=== PATIENT | male | born 1965 | race Two or more races ===

== ENCOUNTER 2023-03-04 12:12 | Day surgery (SDC) | payer OTHER ==
[~2023-03-04] VITALS: Ht 170.2 cm; Wt 85.7 kg
[~2023-03-04 12:12] MED LIST: ATORVASTATIN CA80 MG PO; CHILDREN'S ASPI81 MG PO; NORVASC5 MG PO; ZESTRIL40 M1 PO
== END 2023-03-04 18:35 | disposition home or self-care (01) ==
LOC: CIR.AMB 12:12
PROVIDERS: ATTEND Orthopaedic Surgery
DX: M75.122 Complete rotator cuff tear or rupture of left shoulder, not specified as traumatic (principal); M24.112 Other articular cartilage disorders, left shoulder; M75.22 Bicipital tendinitis, left shoulder; Z20.822 Contact with and (suspected) exposure to COVID-19; I10 Essential (primary) hypertension; E78.5 Hyperlipidemia, unspecified; E11.9 Type 2 diabetes mellitus without complications